=== PATIENT | male | born 1975 | race Two or more races ===

== ENCOUNTER 2017-03-31 21:34 | Inpatient (IN) | payer OTHER ==
[~2017-03-31] VITALS: Ht 167.6 cm; Wt 71.2 kg
[~2017-03-31 21:34] MED LIST: CHLO25TA PO; FERR-26 PO; FURO-68 PO; LACT10SO PO; LEVO75TA5 PO; LOSA50TA6 PO; PANT40TA3 PO; POLY15DR28 OP; PROP40TA PO; RING10003 IV; TRAM50TA PO
[2017-03-31 22:29] LABS: BASO # 0.1 x10^3/uL (0.0-0.2); BASO % 1 % (0-3); EOS % 0 % (0-3); HEMATOCRIT 26.7 % (39.0-53.0); LYMPH # 0.6 x10^3/uL (1.0-4.8); LYMPH % 9 % (24-48); MEAN CORPUSCULAR HEMOGLOBIN 30 pg (25-35); MEAN CORPUSCULAR HGB CONC 34 g/dL (31-37); MEAN CORPUSCULAR VOLUME 89 fL (79-100); MONO % 6 % (0-9); NEUT % 85 % (31-73); PLATELET COUNT 157 x10^3/uL (140-400); RED BLOOD COUNT 2.99 x10^6/uL (4.30-5.70); RED CELL DISTRIBUTION WIDTH 15.1 % (11.5-14.5); WHITE BLOOD COUNT 6.6 x10^3/uL (4.0-11.0)
[2017-03-31] MEDS ORDERED: IV NORMAL SALINE 1000ML BAG 1,000 ML IV ONE (22:30)
[2017-03-31] MEDS ORDERED: HYDROmorphone 2 MG/ML VIAL IV ONE (22:30)
[2017-03-31] MEDS ORDERED: KETOROLAC 30 MG/ML INJ. IV ONE (22:30)
[2017-03-31 22:40] LABS: CALCIUM 9.2 mg/dL (8.5-10.1); CREATININE 2.9 mg/dL (0.7-1.3); GFR 24.2; POTASSIUM 5.9 mmol/L (3.5-5.1)
[2017-03-31 22:46] LABS: ALBUMIN 3.4 g/dL (3.4-5.0); ALBUMIN/GLOBULIN RATIO 0.8 (1.0-1.7); TOTAL BILIRUBIN 0.5 mg/dL (0.2-1.0); TOTAL PROTEIN 7.8 g/dL (6.4-8.2)
[2017-04-01 00:12] LABS: BILIRUBIN,URINE NEGATIVE (NEG); GLUCOSE,URINE NEGATIVE (NEG); NITRITE,URINE NEGATIVE (NEG); PH,URINE 6.5; PROTEIN,URINE >=300 mg/dL (NEG-TRACE); UROBILINOGEN,URINE 0.2 mg/dL (0.2 mg/dL)
[2017-04-01 00:15] LABS: RBC,URINE 20-40 /HPF (0-2); WBC,URINE OCC /HPF (0-4)
[2017-04-01 00:16] LABS: BACTERIA,URINE 0 /HPF (0-FEW); SQUAMOUS EPITHELIAL CELL,UR OCC /LPF
[2017-04-01] MEDS ORDERED: CALCIUM GLUCONATE 100 MG/ML VIAL for DOSE IN MG. IV ONE (01:00)
[2017-04-01] MEDS ORDERED: SODIUM BICARB ADULT 8.4% 50 MEQ/50 ML DISP.SYRIN. IV ONE (01:00)
[2017-04-01] MEDS ORDERED: INSULIN REGULAR 100 UNIT/ML 10ML VIAL. IV ONE (01:00)
[2017-04-01] MEDS ORDERED: DEXTROSE 50% 25 GM / 50ML DISP.SYRIN. IV ONE (01:00)
--- NOTE | 2017-04-01 01:08 | RAD ---
CT abdomen and pelvis without contrast: Reason for examination: Abdominal pain. Elevated creatinine. Helical images were obtained through the abdomen and pelvis with no intravenous or oral contrast administered. Reconstruction was performed in sagittal and coronal planes. Exposure: One or more of the following individualized dose reduction techniques were utilized for this examination: 1. Automated exposure control 2. Adjustment of the mA and/or kV according to patient size 3. Use of iterative reconstruction technique. The lung bases are clear. The heart size is upper normal with no pericardial effusion seen. No focal abnormality seen at the liver, spleen, adrenal glands or pancreas. Gallbladder shows cholelithiasis. The kidneys show no renal masses, renal calculi, hydronephrosis or obstructive uropathy. No abnormality seen at the abdominal aorta or inferior vena cava. There is very little intra-abdominal fat but what appears to be the appendix is not abnormal. No bowel obstruction is seen. The intestinal tract shows no abnormally dilated loops of bowel. No abnormality seen at the bladder, prostate gland or seminal vesicles. There appears be a right inguinal hernia which appears to contain some fluid and a loop of bowel cannot be excluded. IMPRESSION: Cholelithiasis. Right inguinal hernia containing fluid which could represent a loop of bowel. Electronically signed by: Alexia Ramachandran MD (04/01/2017 1:05 AM) [facility]
[2017-04-01] MEDS ORDERED: IV NORMAL SALINE 1000ML BAG 1,000 ML IV SCH (01:15)
[2017-04-01] MEDS ORDERED: ONDANSETRON PF 4 MG/2 ML VIAL. IV PRN (01:15)
[2017-04-01] MEDS ORDERED: hydrALAZINE 25 MG TABLET PO ONE (02:15)
[2017-04-01 03:00] VITALS: BP 180/107
[2017-04-01] MEDS ORDERED: LISI10TA2 PO (04:25)
[2017-04-01] MEDS ORDERED: LACT20SO PO (04:25)
[2017-04-01] MEDS ORDERED: ACET325T9 PO (04:25)
[2017-04-01] MEDS ORDERED: AMLO10TA4 PO (04:25)
[2017-04-01] MEDS ORDERED: LEVO75TA5 PO (04:25)
[2017-04-01] MEDS ORDERED: HYDR-2869 PO (04:25)
[2017-04-01] MEDS ORDERED: CALC667T PO (04:25)
[2017-04-01] MEDS ORDERED: SODI650T PO (04:25)
[2017-04-01] MEDS ORDERED: FURO40TA4 PO (04:25)
[2017-04-01] MEDS ORDERED: DARB40VI SQ (04:25)
[2017-04-01] MEDS ORDERED: HYDR-2868 PO (04:25)
[2017-04-01] MEDS ORDERED: PANT40TA3 PO (04:25)
[2017-04-01] MEDS ORDERED: DOCU100C28 PO (04:25)
[2017-04-01] MEDS ORDERED: CARV25TA2 PO (04:25)
--- NOTE | 2017-04-01 06:15 | PHYS DOC ---
Past Medical History Past Medical History: Hypertension, Renal Failure Additional Past Medical Histor: LYMPHOMA, CARCINOMA Past Surgical History: No Surgical History Alcohol Use: None Drug Use: None Adult General Chief Complaint Chief Complaint: GROIN PAIN HPI HPI Patient is a 41 year old [f__sex] who presents with [] Review of Systems Review of Systems Constitutional: Denies fever or chills [] Eyes: Denies change in visual acuity, redness, or eye pain [] HENT: Denies nasal congestion or sore throat [] Respiratory: Denies cough or shortness of breath [] Cardiovascular: No additional information not addressed in HPI [] GI: Denies abdominal pain, nausea, vomiting, bloody stools or diarrhea [] : Denies dysuria or hematuria [] Musculoskeletal: Denies back pain or joint pain [] Integument: Denies rash or skin lesions [] Neurologic: Denies headache, focal weakness or sensory changes [] Endocrine: Denies polyuria or polydipsia [] All other systems were reviewed and found to be within normal limits, except as documented in this note. Current Medications Current Medications Current Medications Medications (Trade) Dose Ordered Sig/Juli Start Time Stop Time Status Last Admin Dose Admin Calcium Gluconate (Calcium Gluconate) 1,000 mg 1X ONCE 04/01/17 01:00 04/01/17 01:01 DC 04/01/17 01:07 1,000 MG Dextrose (Dextrose 50%-Water Syringe) 25 gm 1X ONCE 04/01/17 01:00 04/01/17 01:01 DC 04/01/17 01:08 25 GM Hydromorphone HCl (Dilaudid) 2 mg 1X ONCE 03/31/17 22:30 03/31/17 22:31 DC 03/31/17 22:30 2 MG Insulin Human Regular (NovoLIN R VIAL) 10 unit 1X ONCE 04/01/17 01:00 04/01/17 01:01 DC 04/01/17 01:10 10 UNIT Ketorolac Tromethamine (Toradol) 30 mg 1X ONCE 03/31/17 22:30 03/31/17 22:31 DC 03/31/17 22:30 30 MG Lorazepam (Ativan) 1 mg 1X ONCE 03/31/17 22:30 03/31/17 22:31 DC 03/31/17 22:30 1 MG Sodium Bicarbonate 50 meq 1X ONCE 04/01/17 01:00 04/01/17 01:01 DC 04/01/17 01:08 50 MEQ Sodium Chloride 1,000 ml @ 125 mls/hr 1X ONCE 03/31/17 22:30 04/01/17 06:29 03/31/17 22:30 125 MLS/HR Allergies Allergies Allergies Coded Allergies Type Severity Reaction Last Updated Verified penicillin G Allergy Intermediate 07/04/14 Yes sulfamethoxazole Allergy Intermediate 07/04/14 Yes trimethoprim Allergy Intermediate 07/04/14 Yes Physical Exam Physical Exam Constitutional: Well developed, well nourished, no acute distress, non-toxic appearance. [] HENT: Normocephalic, atraumatic, bilateral external ears normal, oropharynx moist, no oral exudates, nose normal. [] Eyes: PERRLA, EOMI, conjunctiva normal, no discharge. [] Neck: Normal range of motion, no tenderness, supple, no stridor. [] Cardiovascular:Heart rate regular rhythm, no murmur [] Lungs & Thorax: Bilateral breath sounds clear to auscultation [] Abdomen: Bowel sounds normal, soft, no tenderness, no masses, no pulsatile masses. [] Skin: Warm, dry, no erythema, no rash. [] Back: No tenderness, no CVA tenderness. [] Extremities: No tenderness, no cyanosis, no clubbing, ROM intact, no edema. [] Neurologic: Alert and oriented X 3, normal motor function, normal sensory function, no focal deficits noted. [] Psychologic: Affect normal, judgement normal, mood normal. [] Current Patient Data Vital Signs Vital Signs Date Time Temp Pulse Resp B/P (MAP) Pulse Ox O2 Delivery O2 Flow Rate FiO2 04/01/17 01:00 73 14 187/110 (135) 95 Room Air 03/31/17 21:50 97.7 97.7 Lab Values Laboratory Tests Test 03/31/17 22:00 03/31/17 23:59 White Blood Count 6.6 x10^3/uL (4.0-11.0) Red Blood Count 2.99 x10^6/uL (4.30-5.70) L Hemoglobin 9.0 g/dL (13.0-17.5) L Hematocrit 26.7 % (39.0-53.0) L Mean Corpuscular Volume 89 fL (79-100) Mean Corpuscular Hemoglobin 30 pg (25-35) Mean Corpuscular Hemoglobin Concent 34 g/dL (31-37) Red Cell Distribution Width 15.1 % (11.5-14.5) H Platelet Count 157 x10^3/uL (140-400) Neutrophils (%) (Auto) 85 % (31-73) H Lymphocytes (%) (Auto) 9 % (24-48) L Monocytes (%) (Auto) 6 % (0-9) Eosinophils (%) (Auto) 0 % (0-3) Basophils (%) (Auto) 1 % (0-3) Neutrophils # (Auto) 5.6 x10^3uL (1.8-7.7) Lymphocytes # (Auto) 0.6 x10^3/uL (1.0-4.8) L Monocytes # (Auto) 0.4 x10^3/uL (0.0-1.1) Eosinophils # (Auto) 0.0 x10^3/uL (0.0-0.7) Basophils # (Auto) 0.1 x10^3/uL (0.0-0.2) Sodium Level 139 mmol/L (136-145) Potassium Level 5.9 mmol/L (3.5-5.1) H Chloride Level 108 mmol/L (98-107) H Carbon Dioxide Level 24 mmol/L (21-32) Anion Gap 7 (6-14) Blood Urea Nitrogen 45 mg/dL (8-26) H Creatinine 2.9 mg/dL (0.7-1.3) H Estimated GFR (Cockcroft-Gault) 24.2 BUN/Creatinine Ratio 16 (6-20) Glucose Level 98 mg/dL (70-99) Calcium Level 9.2 mg/dL (8.5-10.1) Total Bilirubin 0.5 mg/dL (0.2-1.0) Aspartate Amino Transferase (AST) 28 U/L (15-37) Alanine Aminotransferase (ALT) 39 U/L (16-63) Alkaline Phosphatase 82 U/L (46-116) Total Protein 7.8 g/dL (6.4-8.2) Albumin 3.4 g/dL (3.4-5.0) Albumin/Globulin Ratio 0.8 (1.0-1.7) L Lipase 110 U/L (73-393) Urine Collection Type Unknown Urine Color Yellow Urine Clarity Clear Urine pH 6.5 Urine Specific [place] 1.010 Urine Protein >=300 mg/dL (NEG-TRACE) Urine Glucose (UA) Negative mg/dL (NEG) Urine Ketones (Stick) Negative mg/dL (NEG) Urine Blood Moderate (NEG) Urine Nitrite Negative (NEG) Urine Bilirubin Negative (NEG) Urine Urobilinogen Dipstick 0.2 mg/dL (0.2 mg/dL) Urine Leukocyte Esterase Negative (NEG) Urine RBC 20-40 /HPF (0-2) Urine WBC Occ /HPF (0-4) Urine Squamous Epithelial Cells Occ /LPF Urine Amorphous Sediment Present /HPF Urine Bacteria 0 /HPF (0-FEW) Urine Hyaline Casts Few /HPF Urine Mucus Slight /LPF Laboratory Tests 03/31/17 22:00 Laboratory Tests 03/31/17 22:00 EKG EKG [] Radiology/Procedures Radiology/Procedures [] Course & Med Decision Making Course & Med Decision Making Pertinent Labs and Imaging studies reviewed. (See chart for details) [] Dragon Disclaimer Dragon Disclaimer This electronic medical record was generated, in whole or in part, using a voice recognition dictation system. Departure Departure Impression: Primary Impression: Reducible right inguinal hernia Additional Impressions: Acute renal injury Hyperkalemia Disposition: ADMITTED INPATIENT Admitting Physician: Nolberto Casey Condition: STABLE Referrals: NICOLE REED (PCP) Problem Qualifiers MACKENZIE SHI MD Apr 01, 2017 06:15
[2017-04-01] MEDS ORDERED: DOCUSATE SODIUM 100 MG CAPSULE. PO PRN (06:30)
[2017-04-01] MEDS ORDERED: ACETAMINOPHEN 325 MG TABLET. PO PRN (06:30)
[2017-04-01] MEDS ORDERED: HYDROmorphone 2 MG/ML VIAL IV PRN (06:30)
[2017-04-01 07:00] VITALS: BP 174/101
[2017-04-01] MEDS ORDERED: LEVOTHYROXINE 75 MCG TABLET PO SCH (07:00)
[2017-04-01] MEDS ORDERED: LACTULOSE 20 GM/30 ML SOLUTION. PO PRN (07:15)
[2017-04-01] MEDS ORDERED: PANTOPRAZOLE 40 MG TABLET.DR. PO SCH (07:30)
[2017-04-01] MEDS ORDERED: CARVEDILOL 12.5 MG TABLET. PO SCH (08:00)
[2017-04-01] MEDS ORDERED: CALCIUM ACETATE 667 MG CAPSULE PO SCH (08:00)
[2017-04-01] MEDS ORDERED: LISINOPRIL 10 MG TABLET PO SCH (09:00)
[2017-04-01] MEDS ORDERED: FUROSEMIDE 40 MG TABLET. PO SCH (09:00)
[2017-04-01] MEDS ORDERED: hydrALAZINE 25 MG TABLET PO SCH (09:00)
[2017-04-01] MEDS ORDERED: SODIUM BICARBONATE 650 MG TABLET. PO SCH (09:00)
--- NOTE | 2017-04-01 09:40 | PDOC2 ---
ELISA MO Brock [employer] 04/01/17 0939: CONSULT Date of Consult Date of Consult DATE: 04/01/17 TIME: 09:30 Reason for Consult Reason for Consult: hernia Referring Physician Referring Physician: Dr Casey Identification/Chief Complaint Chief Complaint inguinal pain Problems: Source Source: Chart review, Patient History of Present Illness Reason for Visit: Right inguinal hernia for 2 years. Usually can reduce easily. yesterday swelling to groin, could not reduce, had vomiting. Now reduced, no pain. Hx of renal failure, no dialysis for several years. Lymphoma, carcinoma(left chest wall mass) Past Medical History Cardiovascular: HTN Hepatobiliary: Hep A/B/C Renal/: Chronic renal failure Past Surgical History Past Surgical History: Other (av fistula) Family History Family History: No Significant Social History ALCOHOL: none Drugs: None Current Problem List Problem List Problems Medical Problems: (1) Acute renal injury Status: Acute (2) Hyperkalemia Status: Acute (3) Reducible right inguinal hernia Status: Acute Current Medications Current Medications Current Medications Hydromorphone HCl (Dilaudid) 2 mg 1X ONCE IV Last administered on 03/31/17 22:30; Start 03/31/17 at 22:30; Stop 03/31/17 at 22:31; Status DC Ketorolac Tromethamine (Toradol) 30 mg 1X ONCE IV Last administered on 22:30; Start 03/31/17 at 22:30; Stop 03/31/17 at 22:31; Status DC Lorazepam (Ativan) 1 mg 1X ONCE IV Last administered on 03/31/17 22:30; Start 03/31/17 at 22:30; Stop 03/31/17 at 22:31; Status DC Sodium Chloride 1,000 ml @ 125 mls/hr 1X ONCE IV Last administered on 22:30; Start 03/31/17 at 22:30; Stop 04/01/17 at 06:29; Status DC Calcium Gluconate (Calcium Gluconate) 1,000 mg 1X ONCE IV Last administered on 04/01/17 01:07; Start 04/01/17 at 01:00; Stop 04/01/17 at 01:01; Status DC Sodium Bicarbonate 50 meq 1X ONCE IV Last administered on 04/01/17 01:08; Start 04/01/17 at 01:00; Stop 04/01/17 at 01:01; Status DC Insulin Human Regular (NovoLIN R VIAL) 10 unit 1X ONCE IV Last administered on 04/01/17 01:10; Start 04/01/17 at 01:00; Stop 04/01/17 at 01:01; Status DC Dextrose (Dextrose 50%-Water Syringe) 25 gm 1X ONCE IV Last administered on 01:08; Start 04/01/17 at 01:00; Stop 04/01/17 at 01:01; Status DC Ondansetron HCl (Zofran) 4 mg PRN Q8HRS PRN IV NAUSEA/VOMITING Last administered on 04/01/17 07:06; Start 04/01/17 at 01:15; Stop 04/02/17 at 01 :14 Sodium Chloride 1,000 ml @ 125 mls/hr Q8H IV Last administered on 04/01/17 01:15; Start 04/01/17 at 01:15; Stop 04/02/17 at 01:14 Hydralazine HCl (Apresoline) 75 mg 1X ONCE PO Last administered on 04/01/17 02:24; Start 04/01/17 at 02:15; Stop 04/01/17 at 02:16; Status DC Hydromorphone HCl (Dilaudid) 2 mg PRN Q2HRS PRN IV PAIN Last administered on 07:06; Start 04/01/17 at 06:30 Acetaminophen (Tylenol) 650 mg PRN Q6HRS PRN PO MILD PAIN / TEMP; Start at 06:30 Amlodipine Besylate (Norvasc) 10 mg HS PO ; Start 04/01/17 at 21:00 Docusate Sodium (Colace) 100 mg PRN BID PRN PO CONSTIPATION; Start 04/01/17 at 06:30 Furosemide (Lasix) 60 mg BID92 PO ; Start 04/01/17 at 09:00 Hydralazine HCl (Apresoline) 75 mg BID PO ; Start 04/01/17 at 09:00 Hydralazine HCl (Apresoline) 50 mg BID@1200,1700 PO ; Start 04/01/17 at 12:00 Levothyroxine Sodium (Synthroid) 75 mcg DAILY07 PO Last administered on 07:05; Start 04/01/17 at 07:00 Lisinopril (Prinivil) 10 mg DAILY PO ; Start 04/01/17 at 09:00 Pantoprazole Sodium (Protonix) 40 mg DAILYAC PO Last administered on 07:05; Start 04/01/17 at 07:30 Sodium Bicarbonate (Sodium Bicarbonate) 650 mg BID PO ; Start 04/01/17 at 09:00 Calcium Acetate (Phoslo) 667 mg TIDWMEALS PO ; Start 04/01/17 at 08:00 Carvedilol (Coreg) 37.5 mg BIDWMEALS PO ; Start 04/01/17 at 08:00 Darbepoetin Pepito (Aranesp) 40 mcg Q2WKS SQ ; Start 04/08/17 at 09:00 Lactulose 10 gm PRN BID PRN PO CONSTIPATION; Start 04/01/17 at 07:15 Active Scripts Active Reported Furosemide 40 Mg Tablet 60 Mg PO BID Hydralazine Hcl 25 Mg Tablet 75 Mg PO BID Aranesp Vial (Darbepoetin Pepito In Polysorbat) 40 Mcg/1 Ml Vial 40 Mcg SQ Q2WKS Norvasc (Amlodipine Besylate) 10 Mg Tablet 10 Mg PO HS Lactulose 20 Gm/30 Ml Solution 10 Gm PO PRN BID PRN Sodium Bicarbonate 650 Mg Tablet 1 Tab PO BID Tylenol (Acetaminophen) 325 Mg Tablet 650 Mg PO PRN Q6HRS Docusate Sodium 100 Mg Capsule 1 Cap PO PRN BID PRN Hydralazine Hcl 50 Mg Tablet 1 Tab PO BID Levothyroxine Sodium 75 Mcg Tablet 75 Mcg PO DAILYAC Calcium Acetate 667 Mg Tablet 667 Mg PO TIDWMEALS Carvedilol 25 Mg Tablet 37.5 Mg PO BIDWMEALS Protonix (Pantoprazole Sodium) 40 Mg Tablet.dr 40 Mg PO DAILY Lisinopril 10 Mg Tablet 10 Mg PO DAILY Allergies Allergies: Coded Allergies: penicillin G (Verified Allergy, Intermediate, 07/04/14) sulfamethoxazole (Verified Allergy, Intermediate, 07/04/14) trimethoprim (Verified Allergy, Intermediate, 07/04/14) ROS General: No: Chills, Other (fevers ) PSYCHOLOGICAL ROS: No: Anxiety, Depression Eyes: No Blurry vision, No Double vision HEENT: No: Sore Throat Hematological and Lymphatic: No: Bleeding Problems, Blood Clots Respiratory: No: Cough, Shortness of breath Cardiovascular: No Chest Pain, No Palpitations Gastrointestinal: Yes Other (see hpi) Genitourinary: No Dysuria, No Hematuria Musculoskeletal: No Joint Pain, No Muscle Pain Neurological: No Impaired Coord/balance, No Numbness/Tingling Skin: No Pruritus, No Rash Physical Exam General: Alert, Oriented X3, Cooperative, No acute distress HEENT: PERRLA, Mucous membr. moist/pink Lungs: Clear to auscultation, Normal air movement Heart: Regular rate, Normal S1, Normal S2, No murmurs Abdomen: Normal bowel sounds, Soft, No tenderness, No hepatosplenomegaly, No masses Extremities: No clubbing, No cyanosis, No edema, Normal pulses, No tenderness/ swelling Skin: No rashes, No breakdown Neuro: Normal gait, Normal speech, Normal tone, Sensation intact, Reflexes 2+ Psych/Mental Status: Mental status NL, Mood NL Vitals VITALS Vital Signs Date Time Temp Pulse Resp B/P (MAP) Pulse Ox O2 Delivery O2 Flow Rate FiO2 04/01/17 08:00 Room Air 04/01/17 07:35 20 99 04/01/17 07:00 98.6 72 174/101 (125) 98.6 Labs Labs Laboratory Tests Test 03/31/17 22:00 03/31/17 23:59 White Blood Count 6.6 x10^3/uL (4.0-11.0) Red Blood Count 2.99 x10^6/uL (4.30-5.70) Hemoglobin 9.0 g/dL (13.0-17.5) Hematocrit 26.7 % (39.0-53.0) Mean Corpuscular Volume 89 fL (79-100) Mean Corpuscular Hemoglobin 30 pg (25-35) Mean Corpuscular Hemoglobin Concent 34 g/dL (31-37) Red Cell Distribution Width 15.1 % (11.5-14.5) Platelet Count 157 x10^3/uL (140-400) Neutrophils (%) (Auto) 85 % (31-73) Lymphocytes (%) (Auto) 9 % (24-48) Monocytes (%) (Auto) 6 % (0-9) Eosinophils (%) (Auto) 0 % (0-3) Basophils (%) (Auto) 1 % (0-3) Neutrophils # (Auto) 5.6 x10^3uL (1.8-7.7) Lymphocytes # (Auto) 0.6 x10^3/uL (1.0-4.8) Monocytes # (Auto) 0.4 x10^3/uL (0.0-1.1) Eosinophils # (Auto) 0.0 x10^3/uL (0.0-0.7) Basophils # (Auto) 0.1 x10^3/uL (0.0-0.2) Sodium Level 139 mmol/L (136-145) Potassium Level 5.9 mmol/L (3.5-5.1) Chloride Level 108 mmol/L (98-107) Carbon Dioxide Level 24 mmol/L (21-32) Anion Gap 7 (6-14) Blood Urea Nitrogen 45 mg/dL (8-26) Creatinine 2.9 mg/dL (0.7-1.3) Estimated GFR (Cockcroft-Gault) 24.2 BUN/Creatinine Ratio 16 (6-20) Glucose Level 98 mg/dL (70-99) Calcium Level 9.2 mg/dL (8.5-10.1) Total Bilirubin 0.5 mg/dL (0.2-1.0) Aspartate Amino Transf (AST/SGOT) 28 U/L (15-37) Alanine Aminotransferase (ALT/SGPT) 39 U/L (16-63) Alkaline Phosphatase 82 U/L (46-116) Total Protein 7.8 g/dL (6.4-8.2) Albumin 3.4 g/dL (3.4-5.0) Albumin/Globulin Ratio 0.8 (1.0-1.7) Lipase 110 U/L (73-393) Urine Collection Type Unknown Urine Color Yellow Urine Clarity Clear Urine pH 6.5 Urine Specific [place] 1.010 Urine Protein >=300 mg/dL (NEG-TRACE) Urine Glucose (UA) Negative mg/dL (NEG) Urine Ketones (Stick) Negative mg/dL (NEG) Urine Blood Moderate (NEG) Urine Nitrite Negative (NEG) Urine Bilirubin Negative (NEG) Urine Urobilinogen Dipstick 0.2 mg/dL (0.2 mg/dL) Urine Leukocyte Esterase Negative (NEG) Urine RBC 20-40 /HPF (0-2) Urine WBC Occ /HPF (0-4) Urine Squamous Epithelial Cells Occ /LPF Urine Amorphous Sediment Present /HPF Urine Bacteria 0 /HPF (0-FEW) Urine Hyaline Casts Few /HPF Urine Mucus Slight /LPF Laboratory Tests Test 03/31/17 22:00 03/31/17 23:59 White Blood Count 6.6 x10^3/uL (4.0-11.0) Red Blood Count 2.99 x10^6/uL (4.30-5.70) Hemoglobin 9.0 g/dL (13.0-17.5) Hematocrit 26.7 % (39.0-53.0) Mean Corpuscular Volume 89 fL (79-100) Mean Corpuscular Hemoglobin 30 pg (25-35) Mean Corpuscular Hemoglobin Concent 34 g/dL (31-37) Red Cell Distribution Width 15.1 % (11.5-14.5) Platelet Count 157 x10^3/uL (140-400) Neutrophils (%) (Auto) 85 % (31-73) Lymphocytes (%) (Auto) 9 % (24-48) Monocytes (%) (Auto) 6 % (0-9) Eosinophils (%) (Auto) 0 % (0-3) Basophils (%) (Auto) 1 % (0-3) Neutrophils # (Auto) 5.6 x10^3uL (1.8-7.7) Lymphocytes # (Auto) 0.6 x10^3/uL (1.0-4.8) Monocytes # (Auto) 0.4 x10^3/uL (0.0-1.1) Eosinophils # (Auto) 0.0 x10^3/uL (0.0-0.7) Basophils # (Auto) 0.1 x10^3/uL (0.0-0.2) Sodium Level 139 mmol/L (136-145) Potassium Level 5.9 mmol/L (3.5-5.1) Chloride Level 108 mmol/L (98-107) Carbon Dioxide Level 24 mmol/L (21-32) Anion Gap 7 (6-14) Blood Urea Nitrogen 45 mg/dL (8-26) Creatinine 2.9 mg/dL (0.7-1.3) Estimated GFR (Cockcroft-Gault) 24.2 BUN/Creatinine Ratio 16 (6-20) Glucose Level 98 mg/dL (70-99) Calcium Level 9.2 mg/dL (8.5-10.1) Total Bilirubin 0.5 mg/dL (0.2-1.0) Aspartate Amino Transf (AST/SGOT) 28 U/L (15-37) Alanine Aminotransferase (ALT/SGPT) 39 U/L (16-63) Alkaline Phosphatase 82 U/L (46-116) Total Protein 7.8 g/dL (6.4-8.2) Albumin 3.4 g/dL (3.4-5.0) Albumin/Globulin Ratio 0.8 (1.0-1.7) Lipase 110 U/L (73-393) Urine Collection Type Unknown Urine Color Yellow Urine Clarity Clear Urine pH 6.5 Urine Specific [place] 1.010 Urine Protein >=300 mg/dL (NEG-TRACE) Urine Glucose (UA) Negative mg/dL (NEG) Urine Ketones (Stick) Negative mg/dL (NEG) Urine Blood Moderate (NEG) Urine Nitrite Negative (NEG) Urine Bilirubin Negative (NEG) Urine Urobilinogen Dipstick 0.2 mg/dL (0.2 mg/dL) Urine Leukocyte Esterase Negative (NEG) Urine RBC 20-40 /HPF (0-2) Urine WBC Occ /HPF (0-4) Urine Squamous Epithelial Cells Occ /LPF Urine Amorphous Sediment Present /HPF Urine Bacteria 0 /HPF (0-FEW) Urine Hyaline Casts Few /HPF Urine Mucus Slight /LPF Assessment/Plan Assessment/Plan RIH, now reduced, CT concerns for possible loop of small bowel acute on chronic renal failure, hyperkalemia--Renal consult to eval HX lymphoma will likely need repair of hernia at some point, optimize renal function--will review with Dr Dumont--managed at prior, may be of benefit to continue care there cholelithiasis noted on CT--seems asymptomatic at this time, all symptoms were related to hernia JASVIR DUMONT MD 04/01/17 1418: CONSULT Allergies Allergies: Coded Allergies: penicillin G (Verified Allergy, Intermediate, 07/04/14) sulfamethoxazole (Verified Allergy, Intermediate, 07/04/14) trimethoprim (Verified Allergy, Intermediate, 07/04/14) Assessment/Plan Assessment/Plan Pt seen and examined. Agree with Ms. Mo's note Pt reports feeling much better, hernia resolved notes occasionally having problems with this hernia reducible recommend elective repair with renal maximized, OK to eat Thanks for consult! ELISA MO APRN Apr 01, 2017 09:39 JASVIR DUMONT MD Apr 01, 2017 14:18
--- NOTE | 2017-04-01 10:16 | PDOC2 ---
CONSULT Date of Consult Date of Consult DATE: 04/01/17 TIME: 10:03 Reason for Consult Reason for Consult: CKD III/ ^ K Referring Physician Referring Physician: dr Casey Identification/Chief Complaint Chief Complaint abd pain Problems: Source Source: Chart review, Patient History of Present Illness Reason for Visit: as dictated Past Medical History Cardiovascular: HTN Hepatobiliary: Hep A/B/C Renal/: Chronic renal failure Past Surgical History Past Surgical History: Other (av fistula) Family History Family History: No Significant Social History ALCOHOL: none Drugs: None Current Problem List Problem List Problems Medical Problems: (1) Acute renal injury Status: Acute (2) Hyperkalemia Status: Acute (3) Reducible right inguinal hernia Status: Acute Current Medications Current Medications Current Medications Hydromorphone HCl (Dilaudid) 2 mg 1X ONCE IV Last administered on 03/31/17 22:30; Start 03/31/17 at 22:30; Stop 03/31/17 at 22:31; Status DC Ketorolac Tromethamine (Toradol) 30 mg 1X ONCE IV Last administered on 22:30; Start 03/31/17 at 22:30; Stop 03/31/17 at 22:31; Status DC Lorazepam (Ativan) 1 mg 1X ONCE IV Last administered on 03/31/17 22:30; Start 03/31/17 at 22:30; Stop 03/31/17 at 22:31; Status DC Sodium Chloride 1,000 ml @ 125 mls/hr 1X ONCE IV Last administered on 22:30; Start 03/31/17 at 22:30; Stop 04/01/17 at 06:29; Status DC Calcium Gluconate (Calcium Gluconate) 1,000 mg 1X ONCE IV Last administered on 04/01/17 01:07; Start 04/01/17 at 01:00; Stop 04/01/17 at 01:01; Status DC Sodium Bicarbonate 50 meq 1X ONCE IV Last administered on 04/01/17 01:08; Start 04/01/17 at 01:00; Stop 04/01/17 at 01:01; Status DC Insulin Human Regular (NovoLIN R VIAL) 10 unit 1X ONCE IV Last administered on 04/01/17 01:10; Start 04/01/17 at 01:00; Stop 04/01/17 at 01:01; Status DC Dextrose (Dextrose 50%-Water Syringe) 25 gm 1X ONCE IV Last administered on 01:08; Start 04/01/17 at 01:00; Stop 04/01/17 at 01:01; Status DC Ondansetron HCl (Zofran) 4 mg PRN Q8HRS PRN IV NAUSEA/VOMITING Last administered on 04/01/17 07:06; Start 04/01/17 at 01:15; Stop 04/02/17 at 01 :14 Sodium Chloride 1,000 ml @ 125 mls/hr Q8H IV Last administered on 04/01/17 01:15; Start 04/01/17 at 01:15; Stop 04/02/17 at 01:14 Hydralazine HCl (Apresoline) 75 mg 1X ONCE PO Last administered on 04/01/17 02:24; Start 04/01/17 at 02:15; Stop 04/01/17 at 02:16; Status DC Hydromorphone HCl (Dilaudid) 2 mg PRN Q2HRS PRN IV PAIN Last administered on 07:06; Start 04/01/17 at 06:30 Acetaminophen (Tylenol) 650 mg PRN Q6HRS PRN PO MILD PAIN / TEMP; Start at 06:30 Amlodipine Besylate (Norvasc) 10 mg HS PO ; Start 04/01/17 at 21:00 Docusate Sodium (Colace) 100 mg PRN BID PRN PO CONSTIPATION; Start 04/01/17 at 06:30 Furosemide (Lasix) 60 mg BID92 PO ; Start 04/01/17 at 09:00 Hydralazine HCl (Apresoline) 75 mg BID PO ; Start 04/01/17 at 09:00 Hydralazine HCl (Apresoline) 50 mg BID@1200,1700 PO ; Start 04/01/17 at 12:00 Levothyroxine Sodium (Synthroid) 75 mcg DAILY07 PO Last administered on 07:05; Start 04/01/17 at 07:00 Lisinopril (Prinivil) 10 mg DAILY PO ; Start 04/01/17 at 09:00 Pantoprazole Sodium (Protonix) 40 mg DAILYAC PO Last administered on t 07:05; Start 04/01/17 at 07:30 Sodium Bicarbonate (Sodium Bicarbonate) 650 mg BID PO ; Start 04/01/17 at 09:00 Calcium Acetate (Phoslo) 667 mg TIDWMEALS PO ; Start 04/01/17 at 08:00 Carvedilol (Coreg) 37.5 mg BIDWMEALS PO ; Start 04/01/17 at 08:00 Darbepoetin Pepito (Aranesp) 40 mcg Q2WKS SQ ; Start 04/08/17 at 09:00 Lactulose 10 gm PRN BID PRN PO CONSTIPATION; Start 04/01/17 at 07:15 Active Scripts Active Reported Furosemide 40 Mg Tablet 60 Mg PO BID Hydralazine Hcl 25 Mg Tablet 75 Mg PO BID Aranesp Vial (Darbepoetin Pepito In Polysorbat) 40 Mcg/1 Ml Vial 40 Mcg SQ Q2WKS Norvasc (Amlodipine Besylate) 10 Mg Tablet 10 Mg PO HS Lactulose 20 Gm/30 Ml Solution 10 Gm PO PRN BID PRN Sodium Bicarbonate 650 Mg Tablet 1 Tab PO BID Tylenol (Acetaminophen) 325 Mg Tablet 650 Mg PO PRN Q6HRS Docusate Sodium 100 Mg Capsule 1 Cap PO PRN BID PRN Hydralazine Hcl 50 Mg Tablet 1 Tab PO BID Levothyroxine Sodium 75 Mcg Tablet 75 Mcg PO DAILYAC Calcium Acetate 667 Mg Tablet 667 Mg PO TIDWMEALS Carvedilol 25 Mg Tablet 37.5 Mg PO BIDWMEALS Protonix (Pantoprazole Sodium) 40 Mg Tablet.dr 40 Mg PO DAILY Lisinopril 10 Mg Tablet 10 Mg PO DAILY Allergies Allergies: Coded Allergies: penicillin G (Verified Allergy, Intermediate, 07/04/14) sulfamethoxazole (Verified Allergy, Intermediate, 07/04/14) trimethoprim (Verified Allergy, Intermediate, 07/04/14) ROS Review of System -ve x for abd pain which is now resolved Physical Exam Physical Exam General Appearance: Awake Alert Oriented x 3 In no Distress Eyes: VIsion Unchanged Conjunctiva Normal EN: No EN Drainage Mucous Memb. moist Neck: no JVD no JVP Supple no Thyromegaly CVS: S1 S2 no Murmur No Gallop No Rub no Edema Resp: no Rales no Rhonchi no Acc. Muscle use GI: BAS +ve NO Bruit Non Tender Non Distended : no CVA tenderness; no Suprapubic Tenderness SKIN: no Rashes Breast Exam deferred Mu.Sk: Adequate ROM no Muscle Atrophy Heme: Unable to palpate Obvious LAD no Splenomegaly NEURO: Good Strength and Tone Cranial Nerves II - XII grossly intact Psych: not Depressed no Active hallucination Vital Signs Vital Signs Date Time Temp Pulse Resp B/P (MAP) Pulse Ox O2 Delivery O2 Flow Rate FiO2 04/01/17 09:38 Room Air 04/01/17 07:35 20 99 04/01/17 07:00 98.6 72 174/101 (125) 98.6 Assessment & Plan CK D III : Baseline is 2.8 per pt. He is seen at [facility] and has had a kidney Bx. He does not know the detailsof the same. Current FLuid and E-lyte status does not necessitate emergent need for Dialysis. ^ed K - Renal diet at D/c. watch on ZANDER-i - may need to be D/chloe. DOubt TLS; Kayexalate as ordered Anemia:presumably part of Lymphoma HTN: Current BP meds reviewed. restart x lasix Discussed Plan of Care and prognosis etc. at length with pt at [facility] Labs Labs Laboratory Tests Test 03/31/17 22:00 03/31/17 23:59 White Blood Count 6.6 x10^3/uL (4.0-11.0) Red Blood Count 2.99 x10^6/uL (4.30-5.70) Hemoglobin 9.0 g/dL (13.0-17.5) Hematocrit 26.7 % (39.0-53.0) Mean Corpuscular Volume 89 fL (79-100) Mean Corpuscular Hemoglobin 30 pg (25-35) Mean Corpuscular Hemoglobin Concent 34 g/dL (31-37) Red Cell Distribution Width 15.1 % (11.5-14.5) Platelet Count 157 x10^3/uL (140-400) Neutrophils (%) (Auto) 85 % (31-73) Lymphocytes (%) (Auto) 9 % (24-48) Monocytes (%) (Auto) 6 % (0-9) Eosinophils (%) (Auto) 0 % (0-3) Basophils (%) (Auto) 1 % (0-3) Neutrophils # (Auto) 5.6 x10^3uL (1.8-7.7) Lymphocytes # (Auto) 0.6 x10^3/uL (1.0-4.8) Monocytes # (Auto) 0.4 x10^3/uL (0.0-1.1) Eosinophils # (Auto) 0.0 x10^3/uL (0.0-0.7) Basophils # (Auto) 0.1 x10^3/uL (0.0-0.2) Sodium Level 139 mmol/L (136-145) Potassium Level 5.9 mmol/L (3.5-5.1) Chloride Level 108 mmol/L (98-107) Carbon Dioxide Level 24 mmol/L (21-32) Anion Gap 7 (6-14) Blood Urea Nitrogen 45 mg/dL (8-26) Creatinine 2.9 mg/dL (0.7-1.3) Estimated GFR (Cockcroft-Gault) 24.2 BUN/Creatinine Ratio 16 (6-20) Glucose Level 98 mg/dL (70-99) Calcium Level 9.2 mg/dL (8.5-10.1) Total Bilirubin 0.5 mg/dL (0.2-1.0) Aspartate Amino Transf (AST/SGOT) 28 U/L (15-37) Alanine Aminotransferase (ALT/SGPT) 39 U/L (16-63) Alkaline Phosphatase 82 U/L (46-116) Total Protein 7.8 g/dL (6.4-8.2) Albumin 3.4 g/dL (3.4-5.0) Albumin/Globulin Ratio 0.8 (1.0-1.7) Lipase 110 U/L (73-393) Urine Collection Type Unknown Urine Color Yellow Urine Clarity Clear Urine pH 6.5 Urine Specific Flippin 1.010 Urine Protein >=300 mg/dL (NEG-TRACE) Urine Glucose (UA) Negative mg/dL (NEG) Urine Ketones (Stick) Negative mg/dL (NEG) Urine Blood Moderate (NEG) Urine Nitrite Negative (NEG) Urine Bilirubin Negative (NEG) Urine Urobilinogen Dipstick 0.2 mg/dL (0.2 mg/dL) Urine Leukocyte Esterase Negative (NEG) Urine RBC 20-40 /HPF (0-2) Urine WBC Occ /HPF (0-4) Urine Squamous Epithelial Cells Occ /LPF Urine Amorphous Sediment Present /HPF Urine Bacteria 0 /HPF (0-FEW) Urine Hyaline Casts Few /HPF Urine Mucus Slight /LPF Laboratory Tests Test 03/31/17 22:00 03/31/17 23:59 White Blood Count 6.6 x10^3/uL (4.0-11.0) Red Blood Count 2.99 x10^6/uL (4.30-5.70) Hemoglobin 9.0 g/dL (13.0-17.5) Hematocrit 26.7 % (39.0-53.0) Mean Corpuscular Volume 89 fL (79-100) Mean Corpuscular Hemoglobin 30 pg (25-35) Mean Corpuscular Hemoglobin Concent 34 g/dL (31-37) Red Cell Distribution Width 15.1 % (11.5-14.5) Platelet Count 157 x10^3/uL (140-400) Neutrophils (%) (Auto) 85 % (31-73) Lymphocytes (%) (Auto) 9 % (24-48) Monocytes (%) (Auto) 6 % (0-9) Eosinophils (%) (Auto) 0 % (0-3) Basophils (%) (Auto) 1 % (0-3) Neutrophils # (Auto) 5.6 x10^3uL (1.8-7.7) Lymphocytes # (Auto) 0.6 x10^3/uL (1.0-4.8) Monocytes # (Auto) 0.4 x10^3/uL (0.0-1.1) Eosinophils # (Auto) 0.0 x10^3/uL (0.0-0.7) Basophils # (Auto) 0.1 x10^3/uL (0.0-0.2) Sodium Level 139 mmol/L (136-145) Potassium Level 5.9 mmol/L (3.5-5.1) Chloride Level 108 mmol/L (98-107) Carbon Dioxide Level 24 mmol/L (21-32) Anion Gap 7 (6-14) Blood Urea Nitrogen 45 mg/dL (8-26) Creatinine 2.9 mg/dL (0.7-1.3) Estimated GFR (Cockcroft-Gault) 24.2 BUN/Creatinine Ratio 16 (6-20) Glucose Level 98 mg/dL (70-99) Calcium Level 9.2 mg/dL (8.5-10.1) Total Bilirubin 0.5 mg/dL (0.2-1.0) Aspartate Amino Transf (AST/SGOT) 28 U/L (15-37) Alanine Aminotransferase (ALT/SGPT) 39 U/L (16-63) Alkaline Phosphatase 82 U/L (46-116) Total Protein 7.8 g/dL (6.4-8.2) Albumin 3.4 g/dL (3.4-5.0) Albumin/Globulin Ratio 0.8 (1.0-1.7) Lipase 110 U/L (73-393) Urine Collection Type Unknown Urine Color Yellow Urine Clarity Clear Urine pH 6.5 Urine Specific Flippin 1.010 Urine Protein >=300 mg/dL (NEG-TRACE) Urine Glucose (UA) Negative mg/dL (NEG) Urine Ketones (Stick) Negative mg/dL (NEG) Urine Blood Moderate (NEG) Urine Nitrite Negative (NEG) Urine Bilirubin Negative (NEG) Urine Urobilinogen Dipstick 0.2 mg/dL (0.2 mg/dL) Urine Leukocyte Esterase Negative (NEG) Urine RBC 20-40 /HPF (0-2) Urine WBC Occ /HPF (0-4) Urine Squamous Epithelial Cells Occ /LPF Urine Amorphous Sediment Present /HPF Urine Bacteria 0 /HPF (0-FEW) Urine Hyaline Casts Few /HPF Urine Mucus Slight /LPF ANKIT GLOVER MD Apr 01, 2017 10:16
[2017-04-01] MEDS ORDERED: SODIUM POLYSTYRENE SULFONATE 15 GM/60 ML ORAL.SUSP. PO ONE (10:45)
[2017-04-01 11:00] VITALS: BP 186/102
[2017-04-01] MEDS ORDERED: CALCIUM ACETATE 667 MG CAPSULE ONE (11:00)
--- NOTE | 2017-04-01 11:11 | CONS ---
DATE OF CONSULTATION: PRIMARY PHYSICIAN: Dr. Casey. REASON FOR CONSULTATION: Elevated creatinine. HISTORY OF PRESENT ILLNESS: The patient is a 41-year-old inmate who was admitted through the ER for abdominal pain. He is followed at [facility] for his renal care. He tells me his baseline creatinine is 2.8. He has had a kidney biopsy, but does not know the details of the same. He is known to have longstanding hypertension, renal failure, lymphoma and hepatitis A, B and C. Interestingly, he did receive IV Toradol in the ER for his pain. He was also given bicarbonate. Labs from this morning are not available yet. He denies pain. His inguinal hernia was reduced. He did have some nausea, vomiting. He has had dialysis in the past, but has not needed in several years. He does have an AV fistula created in the past. For rest of the details, see electronic records. ANKIT GLOVER MD DR: LETA/rene JOB#: [id number] / [id number]
--- NOTE | 2017-04-01 12:08 | SSS ---
ADMIT DATE: 04/01/2017 CHIEF COMPLAINT: Groin pain. HISTORY OF PRESENT ILLNESS: The patient is a pleasant 41-year-old male who has a large right inguinal hernia. He [facility] for an evaluation. While in the Emergency Room, they reduced it. There was no problem, but while he was there, they also noticed his creatinine had climbed up into the mid 2s. I discussed the case with the Emergency Room physician. We have now admitted him. We have consulted Nephrology and General Surgery. Nephrology has seen, they plan to have him to go back to where he normally follows. We plan to discharge this afternoon if okay with General Surgery. PAST MEDICAL HISTORY: Hypertension, chronic renal failure, lymphoma, some type of carcinoma. ALLERGIES: PENICILLIN, SULFA AND TRIMETHOPRIM. FAMILY HISTORY: Diabetes. SOCIAL HISTORY: Does not drink, smoke or take drugs. He is incarcerated. MEDICATIONS: Reviewed. REVIEW OF SYSTEMS: GENERAL: No history of weight change, weakness or fevers. SKIN: No bruising, hair changes or rashes. EYES: No blurred, double or loss of vision. NOSE AND THROAT: No history of nosebleeds, hoarseness or sore throat. HEART: No history of palpitations, chest pain or shortness of breath on exertion. LUNGS: Denies cough, hemoptysis, wheezing or shortness of breath. GASTROINTESTINAL: Denies changes in appetite, nausea, vomiting, diarrhea or constipation. GENITOURINARY: No history of frequency, urgency, hesitancy or nocturia. NEUROLOGIC: Denies history of numbness, tingling, tremor or weakness. PSYCHIATRIC: No history of panic, anxiety or depression. ENDOCRINE: No history of heat or cold intolerance, polyuria or polydipsia. EXTREMITIES: Denies muscle weakness, joint pain, pain on walking or stiffness. PHYSICAL EXAMINATION: VITAL SIGNS: Temperature afebrile, pulse 92, respirations 18, blood pressure 144/70. GENERAL: He is alert, cooperative. HEART: Normal S1, S2. LUNGS: Clear. ABDOMEN: Soft. There is no more inguinal hernia, it is reduced. ENDOCRINE: No thyromegaly. LYMPHATICS: No cervical nodes. HEMATOPOIETIC: No bruising. ASSESSMENT AND PLAN: Resolving acute renal failure, resolving hyperkalemia, resolving acute on chronic right inguinal hernia. The patient has been admitted. He is doing well. We plan to discharge if okay with subspecialists. DISPOSITION: Back to the [facility]. ACTIVITY: As tolerated. DIET: Low sodium. MEDICATIONS: Please see the MRAD. TOTAL TIME: 31 minutes. TAYLOR SALINAS DO DR: SAMANTA/rene JOB#: [id number] / [id number]
[2017-04-01 15:00] VITALS: BP 181/103
[2017-04-01] MEDS ORDERED: amLODIPine BESYLATE 10 MG TABLET PO SCH (21:00)
[2017-04-08] MEDS ORDERED: DARBEPOETIN ALFA 40 MCG/0.4 ML DISP.SYRIN. SQ SCH (09:00)
--- NOTE | 2017-04-11 10:46 | DS ---
DATE OF DISCHARGE: 04/01/2017 ADMISSION DIAGNOSES: Inguinal hernia, chronic renal failure, hyperkalemia, history of lymphoma. DISCHARGE DIAGNOSIS: Resolving inguinal hernia. HOSPITAL COURSE: The patient is a pleasant 41-year-old male prisoner who presented with an inguinal hernia. He also had chronic lymphoma and renal failure and other issues. Basically, we were able to reduce his hernia. We watched him overnight. We consulted General Surgery. No surgery was required. We discharged back to the [facility]. DISPOSITION: [facility]. ACTIVITY: As tolerated. DIET: Low sodium. MEDICATIONS: Please see the MRAD. TOTAL TIME: 37 minutes. TAYLOR SALINAS DO DR: SAMANTA/rene JOB#: [id number] / [id number]
== END 2017-04-01 17:45 | disposition home or self-care (01) | DRG 394 ==
LOC: EEVIPCON 21:34 → ER 21:34 → 2 NORTH 04-01 01:00
PROVIDERS: ADMIT Internal Medicine; ATTEND Internal Medicine
DX: K40.90 Unilateral inguinal hernia, without obstruction or gangrene, not specified as recurrent (principal); N17.9 Acute kidney failure, unspecified; C85.90 Non-Hodgkin lymphoma, unspecified, unspecified site; E87.5 Hyperkalemia; N18.3 Chronic kidney disease, stage 3 (moderate); B15.9 Hepatitis A without hepatic coma; I12.9 Hypertensive chronic kidney disease with stage 1 through stage 4 chronic kidney disease, or unspecified chronic kidney disease; Z83.3 Family history of diabetes mellitus; Z88.0 Allergy status to penicillin; Z88.8 Allergy status to other drugs, medicaments and biological substances
CPT/HCPCS: 36415; 74176; 80053; 81001; 83690; 85025; J0610; J1170; J1815; J1885; J2060; J2405; J7030; J7042

== ENCOUNTER → 2018-06-12 | Day surgery (SDC) | payer OTHER ==
[~2018-06-12] MED LIST changes: +ACET325T9 PO; +AMLO10TA4 PO; +CALC667T PO; +CARV25TA2 PO; -CHLO25TA PO; +CHLO25TA10 PO; +DARB40VI SQ; +DOCU100C28 PO; -FERR-26 PO; +FERR325T14 PO; +FURO40TA4 PO; +HYDR-2868 PO; +HYDR-2869 PO; +HYDROmorphone 2 MG/ML VIAL IV PRN; +IV NORMAL SALINE 1000ML BAG 1,000 ML IV SCH; +IV RINGERS,LACTATED 1000ML 1,000 ML IV SCH; +LACT20SO PO; +LIDOCAINE 1% PF 2 ML VIAL. ID PRN; +LIDOCAINE 1% PF 2 ML VIAL. ONE; +LISI10TA2 PO; +LOSA-73 PO; -LOSA50TA6 PO; +MORPHINE SULFATE 2 MG/ML VIAL. IV PRN; +ONDANSETRON PF 4 MG/2 ML VIAL. IV PRN; +PRAZ5CAP2 PO; +PROCHLORPERAZINE 10 MG/2 ML VIAL. IV PRN; +PROPOFOL 20 ML IV ONE; +SODI650T PO; +fentaNYL PF VIAL 100 MCG/2 ML VIAL IV PRN
[2018-06-12 08:32] VITALS: BP 179/86
== END | disposition home or self-care (01) ==
LOC: ENDOS 06:32 → EEVIPCON 08:00
PROVIDERS: ATTEND Internal Medicine Gastroenterology
DX: K31.7 Polyp of stomach and duodenum (principal); K76.6 Portal hypertension; K31.89 Other diseases of stomach and duodenum; Z88.0 Allergy status to penicillin; Z88.1 Allergy status to other antibiotic agents; I12.9 Hypertensive chronic kidney disease with stage 1 through stage 4 chronic kidney disease, or unspecified chronic kidney disease; N18.3 Chronic kidney disease, stage 3 (moderate); Z79.899 Other long term (current) drug therapy; E78.5 Hyperlipidemia, unspecified; K21.9 Gastro-esophageal reflux disease without esophagitis; Z86.14 Personal history of Methicillin resistant Staphylococcus aureus infection; Z86.19 Personal history of other infectious and parasitic diseases; Z85.72 Personal history of non-Hodgkin lymphomas; Z88.8 Allergy status to other drugs, medicaments and biological substances
CPT/HCPCS: 43235; J2704

== ENCOUNTER 2019-04-26 06:45 | Day surgery (SDC) | payer OTHER ==
[~2019-04-26] VITALS: Ht 167.6 cm; Wt 77.0 kg
[~2019-04-26 06:45] MED LIST changes: +CALC200T3 PO; -CALC667T PO; +CALC667T4 PO; +FOLI0.8C PO; +GABA-585 PO; -HYDROmorphone 2 MG/ML VIAL IV PRN; -IV NORMAL SALINE 1000ML BAG 1,000 ML IV SCH; -IV RINGERS,LACTATED 1000ML 1,000 ML IV SCH; -LIDOCAINE 1% PF 2 ML VIAL. ID PRN; -LIDOCAINE 1% PF 2 ML VIAL. ONE; -MORPHINE SULFATE 2 MG/ML VIAL. IV PRN; -ONDANSETRON PF 4 MG/2 ML VIAL. IV PRN; +PANT20TA2 PO; -PANT40TA3 PO; +PANT40TA77 PO; -PROCHLORPERAZINE 10 MG/2 ML VIAL. IV PRN; -PROPOFOL 20 ML IV ONE; -fentaNYL PF VIAL 100 MCG/2 ML VIAL IV PRN
[2019-04-26] MEDS ORDERED: PROCHLORPERAZINE 10 MG/2 ML VIAL. IV PRN (07:00)
[2019-04-26] MEDS ORDERED: HYDROmorphone 2 MG/ML VIAL IV PRN (07:00)
[2019-04-26] MEDS ORDERED: ONDANSETRON PF 4 MG/2 ML VIAL. IV PRN (07:00)
[2019-04-26] MEDS ORDERED: fentaNYL PF VIAL 100 MCG/2 ML VIAL IV PRN ×2 (07:00)
[2019-04-26] MEDS ORDERED: IV NORMAL SALINE 1000ML BAG 1,000 ML IV SCH ×2 (07:00→07:30)
[2019-04-26] MEDS ORDERED: LIDOCAINE 1% PF 2 ML VIAL. ID PRN (07:00)
[2019-04-26] MEDS ORDERED: MORPHINE SULFATE 2 MG/ML VIAL. IV PRN (07:00)
[2019-04-26] MEDS ORDERED: LIDOCAINE 2% PF 5 ML VIAL. ONE (07:26)
[2019-04-26] MEDS ORDERED: ONDANSETRON PF 4 MG/2 ML VIAL. ONE (07:26)
[2019-04-26] MEDS ORDERED: PROPOFOL 20 ML IV ONE (07:26)
[2019-04-26] MEDS ORDERED: DEXAMETHASONE SOD PHOS 4 MG/ML VIAL ONE (07:26)
[2019-04-26] MEDS ORDERED: fentaNYL PF VIAL 100 MCG/2 ML VIAL ONE (07:27)
[2019-04-26] MEDS ORDERED: ROCURONIUM 50 MG/5 ML VIAL. ONE (07:27)
[2019-04-26] MEDS ORDERED: SUCCINYLCHOLINE 200 MG/10 ML VIAL. ONE (07:27)
[2019-04-26 07:33] LABS: BASO % 1 % (0-3); EOS # 0.1 x10^3/uL (0.0-0.7); EOS % 1 % (0-3); HEMOGLOBIN 10.3 g/dL (13.0-17.5); LYMPH # 0.5 x10^3/uL (1.0-4.8); LYMPH % 11 % (24-48); MEAN CORPUSCULAR HEMOGLOBIN 29 pg (25-35); MEAN CORPUSCULAR HGB CONC 34 g/dL (31-37); MEAN CORPUSCULAR VOLUME 85 fL (79-100); MONO # 0.3 x10^3/uL (0.0-1.1); MONO % 7 % (0-9); NEUT # 3.5 x10^3/uL (1.8-7.7); NEUT % 80 % (31-73); PLATELET COUNT 151 x10^3/uL (140-400); RED BLOOD COUNT 3.55 x10^6/uL (4.30-5.70); RED CELL DISTRIBUTION WIDTH 13.2 % (11.5-14.5); WHITE BLOOD COUNT 4.4 x10^3/uL (4.0-11.0)
[2019-04-26 07:50] LABS: CALCIUM 8.9 mg/dL (8.5-10.1); CREATININE 3.8 mg/dL (0.7-1.3); GFR 17.6; POTASSIUM 3.8 mmol/L (3.5-5.1)
[2019-04-26 07:52] LABS: ALBUMIN 4.2 g/dL (3.4-5.0)
[2019-04-26] MEDS ORDERED: BUPIVACAINE-EPI 0.5%-1:200000 MPF 30 ML VIAL. INJ ONE (08:00)
--- NOTE | 2019-04-26 08:05 | PDOC1 ---
History and Physical Date of Admission Date of Admission DATE: 04/26/19 TIME: 08:02 Identification/Chief Complaint Chief Complaint right inguinal hernia Source Source: Chart review, Patient History of Present Illness History of Present Illness Oliverio is a 43 yo male inmate with a right inguinal hernia. Past Medical History Cardiovascular: HTN Hepatobiliary: Hep A/B/C Renal/: Chronic renal failure Past Surgical History Past Surgical History: Other, No pertinent history Family History Family History: No Significant Social History Smoke: No ALCOHOL: none Drugs: None Current Medications Current Medications Current Medications Ondansetron HCl (Zofran) 4 mg PRN Q6HRS PRN IV NAUSEA/VOMITING; Start 04/26/19 at 07:00; Stop 04/27/19 at 06:59 Fentanyl Citrate (Fentanyl 2ml Vial) 25 mcg PRN Q5MIN PRN IV MILD PAIN 1-3; Start 04/26/19 at 07:00; Stop 04/27/19 at 06:59 Fentanyl Citrate (Fentanyl 2ml Vial) 50 mcg PRN Q5MIN PRN IV MODERATE TO SEVERE PAIN; Start 04/26/19 at 07:00; Stop 04/27/19 at 06:59 Morphine Sulfate (Morphine Sulfate) 1 mg PRN Q10MIN PRN IV SEVERE PAIN 7-10; Start 04/26/19 at 07:00; Stop 04/27/19 at 06:59 Lidocaine HCl (Xylocaine-Mpf 1% 2ml Vial) 2 ml PRN 1X PRN ID PRIOR TO IV START; Start 04/26/19 at 07:00; Stop 04/27/19 at 06:59 Hydromorphone HCl (Dilaudid) 0.5 mg PRN Q10MIN PRN IV SEV PAIN, Second choice; Start 04/26/19 at 07:00; Stop 04/27/19 at 06:59 Prochlorperazine Edisylate (Compazine) 5 mg PACU PRN PRN IV NAUSEA, MRX1; Start 04/26/19 at 07:00; Stop 04/27/19 at 06:59 Sodium Chloride 1,000 ml @ 0 mls/hr Q0M IV Last administered on 04/26/19at 07:28; Start 04/26/19 at 07:00 Bupivacaine HCl/ Epinephrine Bitart (Sensorcain-Epi 0.5%-1:639514 Mpf) 30 ml 1X ONCE INJ ; Start 04/26/19 at 08:00; Stop 04/26/19 at 08:01; Status DC Levofloxacin/ Dextrose 100 ml @ 100 mls/hr 1X PREOP PRN IV PRIOR TO SURGERY; Start 04/26/19 at 08:00 Sodium Chloride 1,000 ml @ 30 mls/hr Q24H IV ; Start 04/26/19 at 07:30 Propofol 20 ml @ As Directed STK-MED ONCE IV ; Start 04/26/19 at 07:26; Stop 04/26/19 at 07:27; Status DC Lidocaine HCl (Lidocaine Pf 2% Vial) 5 ml STK-MED ONCE .ROUTE ; Start 04/26/19 at 07:26; Stop 04/26/19 at 07:27; Status DC Ondansetron HCl (Zofran) 4 mg STK-MED ONCE .ROUTE ; Start 04/26/19 at 07:26; Stop 04/26/19 at 07:27; Status DC Dexamethasone Sodium Phosphate (Decadron) 4 mg STK-MED ONCE .ROUTE ; Start 1 06/27/18 at 07:26; Stop 04/26/19 at 07:27; Status DC Succinylcholine Chloride (Anectine) 200 mg STK-MED ONCE .ROUTE ; Start 04/26/19 at 07:27; Stop 04/26/19 at 07:27; Status DC Rocuronium Ewing (Zemuron) 50 mg STK-MED ONCE .ROUTE ; Start 04/26/19 at 07:27; Stop 04/26/19 at 07:27; Status DC Fentanyl Citrate (Fentanyl 2ml Vial) 100 mcg STK-MED ONCE .ROUTE ; Start 04/26/19 at 07:27; Stop 04/26/19 at 07:27; Status DC Active Scripts Active Reported Ferrous Sulfate 325 Mg Tablet 325 Mg PO 3X/WEEK Gabapentin (Gabapentin) 100 Mg Capsule 200 Mg PO HS Tums (Calcium Carbonate) 200 Mg Tab.chew 400 Mg PO QIDAFTMEAL Protonix (Pantoprazole Sodium) 20 Mg Tablet.dr 1 Tab PO DAILY Folic Acid 0.8 Mg Capsule 1 Mg PO DAILY 30 Days Prazosin Hcl 5 Mg Capsule 5 Mg PO TID Furosemide 40 Mg Tablet 80 Mg PO BID Aranesp Vial (Darbepoetin Pepito In Polysorbat) 40 Mcg/1 Ml Vial 36 Mcg SQ QWEEK Norvasc (Amlodipine Besylate) 10 Mg Tablet 10 Mg PO HS Lactulose 20 Gm/30 Ml Solution 10 Gm PO PRN BID PRN Tylenol (Acetaminophen) 325 Mg Tablet 650 Mg PO PRN Q6HRS Levothyroxine Sodium 75 Mcg Tablet 75 Mcg PO DAILYAC Calcium Acetate 667 Mg Tablet 667 Mg PO TIDWMEALS take 2 pills TID with meals Carvedilol 25 Mg Tablet 37.5 Mg PO BIDWMEALS Allergies Allergies: Coded Allergies: penicillin G (Verified Allergy, Intermediate, 06/12/18) sulfamethoxazole (Verified Allergy, Intermediate, 06/12/18) trimethoprim (Verified Allergy, Intermediate, 06/12/18) Physical Exam General: Alert, No acute distress HEENT: Atraumatic Lungs: Normal air movement Heart: RRR Abdomen: Soft Male Genitals Exam: normal genitalia, hernia, other (right side, no left sided changes seen) Vitals Vitals Vital Signs Date Time Temp Pulse Resp B/P (MAP) Pulse Ox O2 Delivery O2 Flow Rate FiO2 04/26/19 07:20 97.0 61 18 138/79 100 Room Air 97.0 Labs Labs Laboratory Tests Test 04/26/19 07:12 White Blood Count 4.4 x10^3/uL (4.0-11.0) Red Blood Count 3.55 x10^6/uL (4.30-5.70) Hemoglobin 10.3 g/dL (13.0-17.5) Hematocrit 30.0 % (39.0-53.0) Mean Corpuscular Volume 85 fL (79-100) Mean Corpuscular Hemoglobin 29 pg (25-35) Mean Corpuscular Hemoglobin Concent 34 g/dL (31-37) Red Cell Distribution Width 13.2 % (11.5-14.5) Platelet Count 151 x10^3/uL (140-400) Neutrophils (%) (Auto) 80 % (31-73) Lymphocytes (%) (Auto) 11 % (24-48) Monocytes (%) (Auto) 7 % (0-9) Eosinophils (%) (Auto) 1 % (0-3) Basophils (%) (Auto) 1 % (0-3) Neutrophils # (Auto) 3.5 x10^3/uL (1.8-7.7) Lymphocytes # (Auto) 0.5 x10^3/uL (1.0-4.8) Monocytes # (Auto) 0.3 x10^3/uL (0.0-1.1) Eosinophils # (Auto) 0.1 x10^3/uL (0.0-0.7) Basophils # (Auto) 0.0 x10^3/uL (0.0-0.2) Sodium Level 138 mmol/L (136-145) Potassium Level 3.8 mmol/L (3.5-5.1) Chloride Level 98 mmol/L (98-107) Carbon Dioxide Level 27 mmol/L (21-32) Anion Gap 13 (6-14) Blood Urea Nitrogen 101 mg/dL (8-26) Creatinine 3.8 mg/dL (0.7-1.3) Estimated GFR (Cockcroft-Gault) 17.6 Glucose Level 115 mg/dL (70-99) Calcium Level 8.9 mg/dL (8.5-10.1) Albumin 4.2 g/dL (3.4-5.0) Laboratory Tests Test 04/26/19 07:12 White Blood Count 4.4 x10^3/uL (4.0-11.0) Red Blood Count 3.55 x10^6/uL (4.30-5.70) Hemoglobin 10.3 g/dL (13.0-17.5) Hematocrit 30.0 % (39.0-53.0) Mean Corpuscular Volume 85 fL (79-100) Mean Corpuscular Hemoglobin 29 pg (25-35) Mean Corpuscular Hemoglobin Concent 34 g/dL (31-37) Red Cell Distribution Width 13.2 % (11.5-14.5) Platelet Count 151 x10^3/uL (140-400) Neutrophils (%) (Auto) 80 % (31-73) Lymphocytes (%) (Auto) 11 % (24-48) Monocytes (%) (Auto) 7 % (0-9) Eosinophils (%) (Auto) 1 % (0-3) Basophils (%) (Auto) 1 % (0-3) Neutrophils # (Auto) 3.5 x10^3/uL (1.8-7.7) Lymphocytes # (Auto) 0.5 x10^3/uL (1.0-4.8) Monocytes # (Auto) 0.3 x10^3/uL (0.0-1.1) Eosinophils # (Auto) 0.1 x10^3/uL (0.0-0.7) Basophils # (Auto) 0.0 x10^3/uL (0.0-0.2) Sodium Level 138 mmol/L (136-145) Potassium Level 3.8 mmol/L (3.5-5.1) Chloride Level 98 mmol/L (98-107) Carbon Dioxide Level 27 mmol/L (21-32) Anion Gap 13 (6-14) Blood Urea Nitrogen 101 mg/dL (8-26) Creatinine 3.8 mg/dL (0.7-1.3) Estimated GFR (Cockcroft-Gault) 17.6 Glucose Level 115 mg/dL (70-99) Calcium Level 8.9 mg/dL (8.5-10.1) Albumin 4.2 g/dL (3.4-5.0) VTE Prophylaxis Ordered VTE Prophylaxis Devices: Yes VTE Pharmacological Prophylaxi: No Assessment/Plan Assessment/Plan right inguinal hernia offered repair explained risks including but not limited to bleeding, infection, recurrence, numbness, chronic pain he will proceed MO HEREDIA MD Apr 26, 2019 08:05
[2019-04-26] MEDS ORDERED: ePHEDrine PF IN SALINE 50 MG/10 ML SYRINGE. IV ONE (08:46)
[2019-04-26] MEDS ORDERED: NEOSTIGMINE METHYLSULFATE 5 MG/5 ML SYRINGE. ONE (08:57)
[2019-04-26] MEDS ORDERED: GLYCOPYRROLATE 1 MG/5 ML VIAL. ONE (08:58)
[2019-04-26] MEDS ORDERED: DESFLURANE 31 TO 60 MINUTES IH ONE (09:12)
--- NOTE | 2019-04-26 09:26 | DISCH ---
DISCHARGE INSTRUCTIONS Condition on Discharge Condition on Discharge: Stable Activity After Discharge Activity Instructions for Disc: Activity as tolerated, Avoid exertion Lifting Instructions after Dis: No heavy lifting Weight Bearing Status after Di: No restrictions Diet after Discharge Diet after Discharge: Regular Diet Texture: Regular Swallowing Supervision: None needed Wound Incision Care Wound/Incision Care: Ice to area for comfort Other wound/incision instructi: september Follow-Up Follow up with: Christopher two weeks [facility] office Treatment/Equipment after DC Adaptive Equipment Issued: None MO HEREDIA MD Apr 26, 2019 09:26
--- NOTE | 2019-04-26 09:31 | PDOC ---
BRIEF OPERATIVE NOTE Date: Apr 26, 2019 Pre-Op Diagnosis right inguinal hernia Post-Op Diagnosis same, indirect Procedure Performed repair with mesh Surgeon Christopher Anesthesia Type: General Blood Loss 5cc IV Fluid 400cc Specimens Obtained none Findings indirect hernia sack, adequate inguinal floor Complications none Operative Note Wk # [id number] MO HEREDIA MD Apr 26, 2019 09:31
--- NOTE | 2019-04-26 09:59 | OP ---
DATE OF SURGERY: 04/26/2019 PREOPERATIVE DIAGNOSIS: Right inguinal hernia. POSTOPERATIVE DIAGNOSIS: Right inguinal hernia, indirect. PROCEDURE: Repair with mesh. SURGEON: Mo Heredia MD. ANESTHESIA: General endotracheal. BLOOD LOSS: 5 mL. INTRAVENOUS FLUIDS: 400 mL. DESCRIPTION OF PROCEDURE: The patient brought to the operating suite, given a general endotracheal anesthetic and the right groin prepped and draped in usual sterile fashion. A 0.5% Marcaine with epinephrine was used to infiltrate the skin and subcutaneous tissue around the incision. Incision made and dissection carried down to the external oblique fascia. Bleeders were cauterized as identified. Fascia opened in the direction of its fibers, extended through the external ring and the cord structures were swept off the pubis. [place] drain placed around them and dissection carried back to the internal ring where an indirect hernia sac was identified, skeletonized and reduced. This was held in reduction with a medium plug of Phasix mesh, tacked with 2-0 PDS, taking care to avoid injury to adjacent vessels. A keyhole patch was fashioned and placed over the floor of the canal. The slit closed with a single 2-0 PDS stitch. When hemostasis was present and a correct sponge count obtained, the cord was returned to its normal anatomical position and the external oblique fascia closed over a running fashion with 3-0 Vicryl. Subcutaneous approximated with 3-0 Vicryl, skin closed with a subcuticular 4-0 Monocryl. Steri-Strips and sterile dressing applied. Prior to emergence from anesthesia, digital rectal exam failed to reveal evidence of prostatic enlargement or nodularity. The patient was awakened from his anesthetic and taken to the recovery room in satisfactory condition. MO HEREDIA MD DR: MADELINE/nts JOB#: [id number] / [id number]
[2019-04-26 10:00] VITALS: BP 112/77
== END 2019-04-26 10:28 | disposition home or self-care (01) ==
LOC: SURG 06:45 → EEVIPCON 08:00 → SURG 10:28
PROVIDERS: ATTEND Surgery
DX: K40.90 Unilateral inguinal hernia, without obstruction or gangrene, not specified as recurrent (principal); I10 Essential (primary) hypertension; N19 Unspecified kidney failure; Z86.19 Personal history of other infectious and parasitic diseases; Z88.1 Allergy status to other antibiotic agents; Z88.0 Allergy status to penicillin; Z88.8 Allergy status to other drugs, medicaments and biological substances
CPT/HCPCS: 36415; 49505; 80048; 82040; 85025; A7015; C1781; J0171; J0330; J1100; J1956; J2001; J2405; J2704; J2710; J3010; J3490